=== PATIENT | male | born 1960 | race Caucasian/White ===

== ENCOUNTER 2022-07-27 16:53 | Emergency (ER) | payer OTHER ==
[~2022-07-27] VITALS: Ht 180.3 cm; Wt 113.6 kg
[2022-07-27 17:17] VITALS: BP 166/100
== END 2022-07-27 22:01 | disposition left against medical advice (07) ==
LOC: ER 16:55
DX: M79.644 Pain in right finger(s) (principal); Z53.21 Procedure and treatment not carried out due to patient leaving prior to being seen by health care provider